=== PATIENT | male | born 1940 | race Caucasian/White ===

== ENCOUNTER 2019-02-13 07:52 | Inpatient (IN) ==
[2019-02-13] MEDS ORDERED: DEXTROSE 50% 25 GM/50 ML VIAL IV PRN (09:15)
[2019-02-13] MEDS ORDERED: GLUCAGON 1 MG VIAL IM PRN (09:15)
[2019-02-13] MEDS ORDERED: oxyCODONE/ACETAMINOPHEN 5-325 MG TABLET PO PRN (09:27)
[2019-02-13] MEDS: SODIUM CHLORIDE 0.9% 1,000 ML IV SCH (16:27)
[2019-02-13] MEDS: PANTOPRAZOLE 40 MG TABLET PO SCH (21:20)
[2019-02-13] MEDS: METOPROLOL TARTRATE 50 MG TABLET PO SCH (21:20)
[2019-02-13] MEDS: CHLORHEXIDINE 0.12% ORAL RINSE 60 ML BOTTLE SWISH/SPIT SCH (21:23)
[2019-02-14 04:11] LABS: ABG Base Excess 1.9 MMOL/L (-2.5-2.5); ABG PH 7.426 (7.35-7.45); ABG PO2 81.4 MM HG (80-95); ABG TCO2 22.6 MMOL/L (23-27); Allen Test Positive; Pt O2 Delivery Device Room Air
[2019-02-14 04:52] LABS: Basophils % 0.2 % (0.0-0.8); Eosinophils # 0.1 10*3/uL (0.0-0.87); Eosinophils % 1.3 % (0.00-10.9); Hematocrit 41.3 VOL% (42.0-52.0); Hemoglobin 13.5 GM/DL (14.0-18.0); Immature Granulocytes % 0.6 %; Immature Granulocytes Absolute 0.05 #; Lymphocytes % 11.8 % (21.2-54.2); Mean Corpuscular HGB Conc 32.7 GM/DL (32-36); Mean Corpuscular Hemoglobin 31 PG (27-34); Mean Corpuscular Volume 95.8 FL (87-102); Mean Platelet Volume 11.8 FL (9.6-12.0); Monocytes % 11.9 % (1.7-12.7); Neutrophils # 6.2 10*3/uL (1.4-7.4); Neutrophils % 74.2 % (38.7-73.9); Platelet Count 187 T/CUMM (130-400); Red Blood Count 4.31 MC/CUMM (3.8-5.5); Red Cell Distribution Width 11.9 % (9.3-17.3); White Blood Count 8.4 T/CUMM (4-12)
[2019-02-14 05:00] LABS: Bilirubin,Total 0.8 MG/DL (0.2-1.0); Calcium 8.4 MG/DL (8.5-10.1); Osmolality,Calculated 280.3 MOS/KG (273-304); Potassium 3.9 MMOL/L (3.5-5.1); Total Protein 6.5 G/DL (6.4-8.3)
[2019-02-14] MEDS: ATORVASTATIN 20 MG TABLET PO SCH (09:43)
[2019-02-14] MEDS: ASPIRIN CHEW 81 MG TABLET PO SCH (09:44)
[2019-02-14] MEDS: PANTOPRAZOLE 40 MG TABLET PO SCH ×2 (09:44→21:32)
[2019-02-14] MEDS: METOPROLOL TARTRATE 50 MG TABLET PO SCH ×2 (09:44→21:32)
[2019-02-14] MEDS: amLODIPine 5 MG TABLET PO SCH (09:44)
[2019-02-14] MEDS: CHLORHEXIDINE 4% SOLN 118 ML BOTTLE TOP SCH ×2 (15:02→21:32)
[2019-02-14] MEDS: CHLORHEXIDINE 0.12% ORAL RINSE 60 ML BOTTLE SWISH/SPIT SCH ×2 (15:02→21:32)
[2019-02-15] MEDS: SODIUM CHLORIDE 0.9% 1,000 ML IV SCH ×2 (01:16→22:47)
[2019-02-15] MEDS ORDERED: PAPAVERINE 60 MG/2 ML VIAL ONE (04:23)
[2019-02-15] MEDS ORDERED: VANCOMYCIN 1,000 MG VIAL ONE (04:23)
[2019-02-15] MEDS: CHLORHEXIDINE 4% SOLN 118 ML BOTTLE TOP SCH ×2 (05:34→12:07)
[2019-02-15] MEDS ORDERED: FAMOTIDINE 20 MG TABLET PO ONE (06:00)
[2019-02-15] MEDS ORDERED: ceFAZolin 1,000 MG in SYRINGE 1 EACH IV ONE (06:00)
[2019-02-15] MEDS ORDERED: DIAZEPAM 5 MG TABLET PO ONE (06:00)
[2019-02-15] MEDS ORDERED: SUFentanil 250 MCG/5 ML AMP ONE (06:11)
[2019-02-15] MEDS ORDERED: CALCIUM CHLORIDE 1,000 MG/10 ML VIAL IV ONE (06:11)
[2019-02-15] MEDS ORDERED: MINERAL OIL/PETROLATUM OPH OINT 3.5 GM TUBE ONE (06:11)
[2019-02-15] MEDS ORDERED: MIDAZOLAM 10 MG/2 ML VIAL ONE (06:11)
[2019-02-15] MEDS ORDERED: VECURONIUM 10 MG VIAL IV ONE (06:12)
[2019-02-15 07:44] LABS: ABG Base Excess 0.3 MMOL/L (-2.5-2.5); ABG HCO3 24.7 MMOL/L (20-26); ABG Oxygen Saturation 99.6 % (95-100); ABG PH 7.362 (7.35-7.45); Glucose Heart Surgery 137 MG/DL (74-106); Hematocrit Heart Surgery 39.8 PERCENT (42-52); Hemoglobin Heart Surgery 12.9 G/DL (14.0-18.0); Ionized Calcium Arterial 1.15 MMOL/L (1.21-1.46); PH Patient Temp Arterial 7.362; Patient Temperature 37 CELCIUS; Potassium Heart/CVR 3.8 MMOL/L (3.5-5.1); Sodium Heart/CVR 137 MMOL/L (135-145)
[2019-02-15 09:16] LABS: Hematocrit Heart Surgery 25.1 PERCENT (42-52); Hemoglobin Heart Surgery 8.1 G/DL (14.0-18.0); PCO2 Patient Temp Venous 36.2 MM HG; PH Patient Temp Venous 7.457; PO2 Patient Temp Venous 38.7 MM HG; Potassium Heart/CVR 4.9 MMOL/L (3.5-5.1); VBG Base Excess 1.9 MEQ/L (0-4); VBG HCO3 25.9 MEQ/L (24-28); VBG Oxygen Saturation 80.2 %; VBG PCO2 39.9 MMHG (41-51); VBG PH 7.427; VBG PO2 44.5 MMHG (17-40)
[2019-02-15 09:51] LABS: Hematocrit Heart Surgery 27.4 PERCENT (42-52); Hemoglobin Heart Surgery 8.8 G/DL (14.0-18.0); PCO2 Patient Temp Venous 30.1 MM HG; PH Patient Temp Venous 7.529; PO2 Patient Temp Venous 39.5 MM HG; Potassium Heart/CVR 4.7 MMOL/L (3.5-5.1); VBG Base Excess 2.7 MEQ/L (0-4); VBG HCO3 26.6 MEQ/L (24-28); VBG Oxygen Saturation 81.8 %; VBG PCO2 31.6 MMHG (41-51); VBG PH 7.514; VBG PO2 42.4 MMHG (17-40)
[2019-02-15 10:34] LABS: ABG Base Excess 1.6 MMOL/L (-2.5-2.5); ABG HCO3 25.8 MMOL/L (20-26); ABG Oxygen Saturation 99.8 % (95-100); ABG PCO2 35.2 MM HG (35-48); ABG PH 7.462 (7.35-7.45); Glucose Heart Surgery 253 MG/DL (74-106); Hematocrit Heart Surgery 28.9 PERCENT (42-52); Hemoglobin Heart Surgery 9.3 G/DL (14.0-18.0); Ionized Calcium Arterial 1.13 MMOL/L (1.21-1.46); PCO2 Patient Temp Arterial 35.2 MMHG; PH Patient Temp Arterial 7.462; Patient Temperature 37 CELCIUS; Potassium Heart/CVR 4.1 MMOL/L (3.5-5.1); Sodium Heart/CVR 132 MMOL/L (135-145)
[2019-02-15] MEDS ORDERED: MANNITOL 100 GM/500 ML BAG IV ONE (10:34)
[2019-02-15] MEDS ORDERED: DEXTROSE 5% KCL 20 MEQ 20 MEQ/1,000 ML BAG IV ONE (10:35)
[2019-02-15] MEDS ORDERED: PROTAMINE SULFATE 250 MG/25 ML VIAL IV ONE (10:35)
[2019-02-15] MEDS ORDERED: SODIUM BICARBONATE 50 MEQ/50 ML VIAL IV ONE (10:35)
[2019-02-15] MEDS ORDERED: PROTAMINE SULFATE 50 MG/5 ML VIAL IV ONE ×2 (10:35→11:27)
[2019-02-15] MEDS ORDERED: ALBUMIN 25% 25 GM/100 ML VIAL IV ONE (10:35)
[2019-02-15] MEDS ORDERED: MAGNESIUM SULFATE 10 GM/20 ML VIAL IV ONE (10:35)
[2019-02-15] MEDS ORDERED: methylPREDNISolone SOD SUC 1,000 MG/8 ML VIAL ONE (10:35)
[2019-02-15] MEDS ORDERED: HEPARIN 10,000 UNIT/10 ML VIAL ONE (10:35)
[2019-02-15] MEDS ORDERED: FUROSEMIDE 20 MG/2 ML VIAL ONE (10:35)
[2019-02-15] MEDS ORDERED: NITROGLYCERIN DRIP 50 MG/250 ML BOTTLE IV ONE ×2 (10:57→11:17)
[2019-02-15] MEDS ORDERED: PHENYLEPHRINE DRIP 40 MG/250 ML PREMIX IV ONE (10:57)
[2019-02-15] MEDS ORDERED: LACTATED RINGERS 1,000 ML IV ONE (11:17)
[2019-02-15] MEDS ORDERED: ETOMIDATE 40 MG/20 ML VIAL IV ONE (11:17)
[2019-02-15] MEDS ORDERED: AMINOCAPROIC ACID 5,000 MG/20 ML VIAL ONE (11:17)
[2019-02-15] MEDS ORDERED: SODIUM CHLORIDE 0.9% 100 ML IV ONE (11:17)
[2019-02-15] MEDS ORDERED: SODIUM CHLORIDE 0.9% 250 ML IV ONE (11:17)
[2019-02-15] MEDS ORDERED: SODIUM CHLORIDE 0.9% 2,000 ML IV ONE (11:17)
[2019-02-15] MEDS ORDERED: SEVOFLURANE 1 UNIT/15 MINUTE INH ONE (11:17)
[2019-02-15] MEDS ORDERED: HEPARIN/NACL 0.9% 2 UNITS/ML 500 ML IV ONE (11:17)
[2019-02-15] MEDS ORDERED: VECURONIUM 10 MG VIAL IV PRN ×2 (11:20)
[2019-02-15] MEDS ORDERED: DEXTROSE 50% 25 GM/50 ML SYRINGE IV PRN ×2 (11:20)
[2019-02-15] MEDS ORDERED: LACTATED RINGERS 250 ML IV PRN (11:20)
[2019-02-15] MEDS ORDERED: NITROPRUSSIDE 100 MG in DEXTROSE 5% 250 ML IV PRN (11:20)
[2019-02-15] MEDS ORDERED: MIDAZOLAM 10 MG/2 ML VIAL IV PRN (11:20)
[2019-02-15] MEDS ORDERED: ACETAMINOPHEN 650 MG SUPP RECTAL PRN (11:20)
[2019-02-15] MEDS ORDERED: MAGNESIUM SULF RIDER 4 GM in PREMIX 1 EACH IV PRN (11:20)
[2019-02-15] MEDS ORDERED: INSULIN REGULAR 100 UNIT/ML IV ONE (11:20)
[2019-02-15] MEDS ORDERED: MORPHINE 4 MG/1 ML VIAL IV PRN (11:20)
[2019-02-15] MEDS ORDERED: INSULIN REGULAR 100 UNIT/ML IV PRN (11:20)
[2019-02-15] MEDS ORDERED: MAGNESIUM SULF RIDER 2 GM in PREMIX 1 EACH IV PRN (11:20)
[2019-02-15] MEDS ORDERED: MORPHINE 10 MG/1 ML VIAL IV PRN (11:20)
[2019-02-15] MEDS ORDERED: PHENYLEPHRINE DRIP 40 MG/250 ML PREMIX IV PRN (11:20)
[2019-02-15] MEDS ORDERED: ONDANSETRON 4 MG/2 ML VIAL IV PRN (11:20)
[2019-02-15] MEDS ORDERED: CALCIUM CHLORIDE 1,000 MG/10 ML SYRINGE IV PRN (11:20)
[2019-02-15] MEDS ORDERED: MIDAZOLAM 2 MG/2 ML VIAL IV PRN (11:20)
[2019-02-15 11:22] LABS: ABG Base Excess 1.1 MMOL/L (-2.5-2.5); ABG HCO3 25.4 MMOL/L (20-26); ABG Oxygen Saturation 98.7 % (95-100); ABG PCO2 36.6 MM HG (35-48); ABG PH 7.443 (7.35-7.45); ABG TCO2 22.8 MMOL/L (23-27); Glucose Heart Surgery 237 MG/DL (74-106); Hematocrit Heart Surgery 29.5 PERCENT (42-52); Hemoglobin Heart Surgery 9.5 G/DL (14.0-18.0); Potassium Heart/CVR 3.9 MMOL/L (3.5-5.1)
[2019-02-15 11:24] LABS: Basophils % 0.1 % (0.0-0.8); Eosinophils # 0.1 10*3/uL (0.0-0.87); Eosinophils % 0.7 % (0.00-10.9); Hematocrit 27.9 VOL% (42.0-52.0); Immature Granulocytes % 1.3 %; Immature Granulocytes Absolute 0.11 #; Lymphocytes # 0.4 10*3/uL (1.4-4.0); Lymphocytes % 4.5 % (21.2-54.2); Mean Corpuscular HGB Conc 32.6 GM/DL (32-36); Mean Corpuscular Hemoglobin 32 PG (27-34); Mean Corpuscular Volume 96.5 FL (87-102); Mean Platelet Volume 10.6 FL (9.6-12.0); Monocytes # 0.4 10*3/uL (0.11-0.8); Neutrophils # 7.6 10*3/uL (1.4-7.4); Neutrophils % 88.4 % (38.7-73.9); Red Cell Distribution Width 11.9 % (9.3-17.3); White Blood Count 8.6 T/CUMM (4-12)
[2019-02-15] MEDS: SODIUM CHLORIDE 0.45% 1,000 ML IV SCH ×2 (11:28)
[2019-02-15 11:29] LABS: Hemoglobin 9.1 GM/DL (14.0-18.0); Platelet Count 182 T/CUMM (130-400); Red Blood Count 2.89 MC/CUMM (3.8-5.5)
[2019-02-15] MEDS ORDERED: NITROGLYCERIN DRIP 50 MG/250 ML BOTTLE IV PRN (11:29)
[2019-02-15] MEDS ORDERED: NITROPRUSSIDE 50 MG/2 ML VIAL ONE (11:31)
[2019-02-15] MEDS ORDERED: POTASSIUM CHLORIDE RIDER 100 ML IV ONE (11:31)
[2019-02-15 11:33] LABS: INR 1.2; PT Patient Result 12.7 SECS; Partial Thromboplastin Time 27.2 SECS (0-40)
[2019-02-15] MEDS: INSULIN REGULAR DRIP 100 ML IV SCH (11:36)
[2019-02-15 11:45] LABS: Hypochromasia 1+; Lymphocytes 6 % (20-55); Platelet Estimate Adequate; Segmented Neutrophils 91 % (50-85); Total Cells Counted 100
[2019-02-15 11:50] LABS: CKMB % 8.8 %
[2019-02-15 11:55] LABS: Albumin 2.9 G/DL (3.4-5.0); Bilirubin,Total 0.8 MG/DL (0.2-1.0); Osmolality,Calculated 285.5 MOS/KG (273-304); Total Protein 5.3 G/DL (6.4-8.3)
[2019-02-15 11:57] LABS: Troponin I 2.42 NG/ML (0.00-0.045)
[2019-02-15] MEDS: POTASSIUM CHLORIDE RIDER 20 MEQ in PREMIX 1 EACH IV PRN ×4 (12:06→18:20)
[2019-02-15] MEDS: METOPROLOL TARTRATE 25 MG TABLET PO SCH ×2 (12:25→21:33)
[2019-02-15] MEDS: KETOROLAC 30 MG/1 ML VIAL IV SCH ×2 (12:25→18:03)
[2019-02-15 12:32] LABS: ABG Base Excess 0.4 MMOL/L (-2.5-2.5); ABG Oxygen Saturation 96.9 % (95-100); ABG PCO2 34.7 MM HG (35-48); ABG PH 7.457 (7.35-7.45); ABG PO2 98.5 MM HG (80-95); Glucose Heart Surgery 189 MG/DL (74-106); Hemoglobin Heart Surgery 10.4 G/DL (14.0-18.0); Potassium Heart/CVR 3.7 MMOL/L (3.5-5.1)
[2019-02-15] MEDS: POTASSIUM CHLORIDE RIDER 10 MEQ in PREMIX 1 EACH IV PRN ×2 (12:32→18:58)
[2019-02-15 13:17] LABS: Apearance,Urine CLEAR (Clear); Bilirubin,Urine Negative (Negative); Blood, Urine Negative (Negative); Glucose,Urine (UA) Negative (Negative); Ketones,Urine 5 mg/dL (Negative); Mucus,Urine Occasional /LPF (Occasional); Nitrite,Urine Negative (Negative); Protein,Urine Negative; Squamous Epithelial Cell,Urine Occasional /HPF (0-10); Urine Color Yellow (Yellow); Urine Specific Gravity 1.019 (1.001-1.035); Urine Urobilinogen < 2.0 EU/DL (0.2-1.0); WBC,Urine 1 /HPF (0-6)
[2019-02-15] MEDS: LACTATED RINGERS 1,000 ML IV PRN ×2 (14:00→17:30)
[2019-02-15 14:08] LABS: ABG HCO3 23.3 MMOL/L (20-26); ABG Oxygen Saturation 97.6 % (95-100); ABG PCO2 33.2 MM HG (35-48); ABG PH 7.465 (7.35-7.45); ABG PO2 117.4 MM HG (80-95); ABG TCO2 24.4 MMOL/L (23-27); Glucose Heart Surgery 146 MG/DL (74-106); Potassium Heart/CVR 3.4 MMOL/L (3.5-5.1)
[2019-02-15 16:22] LABS: ABG Base Excess 0.3 MMOL/L (-2.5-2.5); ABG HCO3 24.7 MMOL/L (20-26); ABG PH 7.404 (7.35-7.45); ABG TCO2 22.6 MMOL/L (23-27); Glucose Heart Surgery 126 MG/DL (74-106); Hematocrit Heart Surgery 32.3 PERCENT (42-52); Hemoglobin Heart Surgery 10.4 G/DL (14.0-18.0); Potassium Heart/CVR 3.9 MMOL/L (3.5-5.1)
[2019-02-15] MEDS: ALBUMIN 5% 12.5 GM in PREMIX 1 EACH IV PRN ×2 (17:30→18:03)
[2019-02-15 20:04] LABS: ABG Base Excess -0.4 MMOL/L (-2.5-2.5); ABG HCO3 24.9 MMOL/L (20-26); ABG Oxygen Saturation 97.6 % (95-100); ABG PCO2 43.3 MM HG (35-48); ABG PH 7.377 (7.35-7.45); ABG PO2 119.2 MM HG (80-95); ABG TCO2 26.2 MMOL/L (23-27); Glucose Heart Surgery 109 MG/DL (74-106); Hemoglobin Heart Surgery 10.6 G/DL (14.0-18.0); Potassium Heart/CVR 4.3 MMOL/L (3.5-5.1)
[2019-02-15 20:26] LABS: Troponin I 3.54 NG/ML (0.00-0.045)
[2019-02-15] MEDS: CHLORHEXIDINE 0.12% ORAL RINSE 60 ML BOTTLE SWISH/SPIT SCH ×2 (21:45→22:46)
[2019-02-15] MEDS: ASPIRIN CHEW 81 MG TABLET PO SCH (22:44)
[2019-02-15] MEDS: ATORVASTATIN 20 MG TABLET PO SCH (22:44)
[2019-02-15] MEDS: METOPROLOL TARTRATE 50 MG TABLET PO SCH (22:45)
[2019-02-15] MEDS: PANTOPRAZOLE 40 MG TABLET PO SCH (22:46)
[2019-02-15] MEDS: amLODIPine 5 MG TABLET PO SCH (22:46)
[2019-02-16] MEDS: KETOROLAC 30 MG/1 ML VIAL IV SCH ×4 (00:03→17:34)
[2019-02-16 00:10] LABS: ABG Base Excess -0.7 MMOL/L (-2.5-2.5); ABG HCO3 23.9 MMOL/L (20-26); ABG Oxygen Saturation 98.4 % (95-100); ABG PH 7.397 (7.35-7.45); ABG TCO2 21.7 MMOL/L (23-27); Glucose Heart Surgery 106 MG/DL (74-106); Hematocrit Heart Surgery 32.6 PERCENT (42-52); Hemoglobin Heart Surgery 10.6 G/DL (14.0-18.0); Potassium Heart/CVR 4.1 MMOL/L (3.5-5.1)
[2019-02-16] MEDS: METOPROLOL TARTRATE 25 MG TABLET PO SCH ×2 (00:12→07:30)
[2019-02-16] MEDS ORDERED: FUROSEMIDE 40 MG/4 ML VIAL IV ONE (00:24)
[2019-02-16 00:49] LABS: ABG Base Excess -1.8 MMOL/L (-2.5-2.5); ABG HCO3 22.9 MMOL/L (20-26); ABG Oxygen Saturation 97.9 % (95-100); ABG PCO2 42.7 MM HG (35-48); ABG PH 7.354 (7.35-7.45); ABG TCO2 21.5 MMOL/L (23-27); Glucose Heart Surgery 120 MG/DL (74-106); Hematocrit Heart Surgery 33.6 PERCENT (42-52); Hemoglobin Heart Surgery 10.9 G/DL (14.0-18.0)
[2019-02-16] MEDS: POTASSIUM CHLORIDE RIDER 20 MEQ in PREMIX 1 EACH IV PRN ×2 (01:19→05:18)
[2019-02-16 04:16] LABS: ABG Base Excess -0.3 MMOL/L (-2.5-2.5); ABG HCO3 24.1 MMOL/L (20-26); ABG Oxygen Saturation 95.7 % (95-100); ABG PH 7.395 (7.35-7.45); ABG PO2 80.8 MM HG (80-95); ABG TCO2 22.1 MMOL/L (23-27); Glucose Heart Surgery 148 MG/DL (74-106); Hematocrit Heart Surgery 32.6 PERCENT (42-52); Hemoglobin Heart Surgery 10.6 G/DL (14.0-18.0); Potassium Heart/CVR 4.1 MMOL/L (3.5-5.1)
[2019-02-16 04:25] LABS: Basophils % 0.2 % (0.0-0.8); Hematocrit 30.6 VOL% (42.0-52.0); Hemoglobin 10.2 GM/DL (14.0-18.0); Immature Granulocytes % 0.8 %; Immature Granulocytes Absolute 0.16 #; Lymphocytes # 0.4 10*3/uL (1.4-4.0); Lymphocytes % 1.9 % (21.2-54.2); Mean Corpuscular HGB Conc 33.3 GM/DL (32-36); Mean Corpuscular Hemoglobin 32 PG (27-34); Mean Corpuscular Volume 96.8 FL (87-102); Mean Platelet Volume 11.3 FL (9.6-12.0); Monocytes # 1.1 10*3/uL (0.11-0.8); Monocytes % 5.6 % (1.7-12.7); Neutrophils # 17.8 10*3/uL (1.4-7.4); Neutrophils % 91.5 % (38.7-73.9); Platelet Count 180 T/CUMM (130-400); Red Blood Count 3.16 MC/CUMM (3.8-5.5); White Blood Count 19.4 T/CUMM (4-12)
[2019-02-16 04:43] LABS: Albumin 3.4 G/DL (3.4-5.0); Bilirubin,Direct 0.2 MG/DL (0.0-0.20); Bilirubin,Total 0.6 MG/DL (0.2-1.0); Calcium 8.1 MG/DL (8.5-10.1); Osmolality,Calculated 282.4 MOS/KG (273-304); Potassium 4.2 MMOL/L (3.5-5.1); Total Protein 6.1 G/DL (6.4-8.3)
[2019-02-16 04:44] LABS: CKMB % 6.4 %
[2019-02-16 04:46] LABS: Troponin I 2.49 NG/ML (0.00-0.045)
[2019-02-16 04:52] LABS: Band Neutrophils 2 % (0-10); Hypochromasia 1+; Lymphocytes 2 % (20-55); Ovalocytes Slight; Platelet Estimate Adequate; Segmented Neutrophils 93 % (50-85); Total Cells Counted 100
[2019-02-16] MEDS ORDERED: DEXTROSE 50% 25 GM/50 ML SYRINGE IV PRN (06:21)
[2019-02-16] MEDS ORDERED: GLUCAGON 1 MG VIAL IM PRN ×3 (06:21→12:43)
[2019-02-16] MEDS: amLODIPine 5 MG TABLET PO SCH (07:30)
[2019-02-16] MEDS: LISINOPRIL 10 MG TABLET PO SCH ×2 (07:30→12:28)
[2019-02-16] MEDS: CHLORHEXIDINE 0.12% ORAL RINSE 60 ML BOTTLE SWISH/SPIT SCH ×2 (08:21→21:47)
[2019-02-16] MEDS ORDERED: DEXTROSE 50% 25 GM/50 ML VIAL IV PRN ×2 (12:43)
[2019-02-16] MEDS ORDERED: oxyCODONE/ACETAMINOPHEN 5-325 MG TABLET PO PRN (12:43)
[2019-02-16] MEDS ORDERED: ACETAMINOPHEN 325 MG TABLET PO PRN (12:43)
[2019-02-16] MEDS ORDERED: ONDANSETRON 4 MG/2 ML VIAL IV PRN (12:43)
[2019-02-16] MEDS ORDERED: KETOROLAC 30 MG/1 ML VIAL IV SCH (12:43)
[2019-02-16] MEDS ORDERED: MAGNESIUM HYDROXIDE SUSP 30 ML UDCUP PO PRN (12:43)
[2019-02-16] MEDS ORDERED: ALUMINUM/MAGNES/SIMETH MAX STR 30 ML UDCUP PO PRN (12:43)
[2019-02-16] MEDS ORDERED: POTASSIUM CHLORIDE 20 MEQ TABLET PO PRN (12:43)
[2019-02-16] MEDS ORDERED: MAGNESIUM SULF RIDER 4 GM in PREMIX 1 EACH IV PRN (12:43)
[2019-02-16] MEDS ORDERED: SODIUM CHLOR 0.45% KCL 20 MEQ 20 MEQ/1,000 ML BAG IV SCH (12:43)
[2019-02-16] MEDS ORDERED: MAGNESIUM SULF RIDER 2 GM in PREMIX 1 EACH IV PRN (12:43)
[2019-02-16] MEDS: INSULIN REGULAR DRIP 100 ML IV SCH (13:10)
[2019-02-16] MEDS: SODIUM CHLORIDE 0.45% 1,000 ML IV SCH ×2 (13:11)
[2019-02-16] MEDS ORDERED: PANTOPRAZOLE 40 MG TABLET PO SCH (21:00)
[2019-02-16] MEDS: METOPROLOL TARTRATE 50 MG TABLET PO SCH (21:46)
[2019-02-16] MEDS: ATORVASTATIN 20 MG TABLET PO SCH (21:46)
[2019-02-16] MEDS: INSULIN LISPRO 100 UNIT/ML SUBCUT SCH (21:50)
[2019-02-17] MEDS: KETOROLAC 30 MG/1 ML VIAL IV SCH ×5 (01:05→23:34)
[2019-02-17] MEDS: ZALEPLON 5 MG CAPSULE PO PRN ×2 (01:05→22:23)
[2019-02-17] MEDS: INSULIN LISPRO 100 UNIT/ML SUBCUT SCH ×5 (02:01→22:28)
[2019-02-17 04:26] LABS: Hemoglobin 10.9 GM/DL (14.0-18.0); Immature Granulocytes % 1.1 %; Immature Granulocytes Absolute 0.24 #; Lymphocytes # 0.6 10*3/uL (1.4-4.0); Lymphocytes % 2.7 % (21.2-54.2); Mean Corpuscular Hemoglobin 32 PG (27-34); Mean Corpuscular Volume 97.3 FL (87-102); Mean Platelet Volume 11.8 FL (9.6-12.0); Monocytes # 2.1 10*3/uL (0.11-0.8); Monocytes % 9.2 % (1.7-12.7); Neutrophils # 19.9 10*3/uL (1.4-7.4); Platelet Count 198 T/CUMM (130-400); Red Blood Count 3.39 MC/CUMM (3.8-5.5); Red Cell Distribution Width 12.3 % (9.3-17.3); White Blood Count 22.8 T/CUMM (4-12)
[2019-02-17 04:47] LABS: Albumin 3.1 G/DL (3.4-5.0); Bilirubin,Direct 0.15 MG/DL (0.0-0.20); Bilirubin,Indirect 0.3 MG/DL (0.0-1.0); Bilirubin,Total 0.4 MG/DL (0.2-1.0); CKMB % 1.6 %; Calcium 8.1 MG/DL (8.5-10.1); Osmolality,Calculated 280.7 MOS/KG (273-304); Potassium 4.5 MMOL/L (3.5-5.1); Total Protein 6.3 G/DL (6.4-8.3)
[2019-02-17 04:48] LABS: Band Neutrophils 1 % (0-10); Hypochromasia 1+; Lymphocytes 2 % (20-55); Ovalocytes Slight; Platelet Estimate Adequate; Segmented Neutrophils 92 % (50-85); Total Cells Counted 100
[2019-02-17 05:02] LABS: Troponin I 1.44 NG/ML (0.00-0.045)
[2019-02-17] MEDS ORDERED: FUROSEMIDE 40 MG/4 ML VIAL IV ONE (06:00)
[2019-02-17] MEDS ORDERED: ASPIRIN CHEW 81 MG TABLET PO SCH (09:00)
[2019-02-17] MEDS ORDERED: amLODIPine 5 MG TABLET PO SCH (09:00)
[2019-02-17] MEDS: ASPIRIN EC 325 MG TABLET PO SCH (09:38)
[2019-02-17] MEDS: PANTOPRAZOLE 40 MG TABLET PO SCH (09:38)
[2019-02-17] MEDS: LISINOPRIL 20 MG TABLET PO SCH (09:38)
[2019-02-17] MEDS: sitaGLIPtin 100 MG TABLET PO SCH (09:38)
[2019-02-17] MEDS: amLODIPine 5 MG TABLET PO SCH (09:38)
[2019-02-17] MEDS: FERROUS SULFATE 325 MG TABLET PO SCH (09:38)
[2019-02-17] MEDS: DOCUSATE SODIUM 100 MG CAPSULE PO SCH (09:38)
[2019-02-17] MEDS: CHLORHEXIDINE 0.12% ORAL RINSE 60 ML BOTTLE SWISH/SPIT SCH ×2 (09:39→22:28)
[2019-02-17] MEDS: METOPROLOL TARTRATE 50 MG TABLET PO SCH ×2 (09:39→22:23)
[2019-02-17] MEDS: ATORVASTATIN 20 MG TABLET PO SCH (22:23)
[2019-02-18] MEDS: INSULIN LISPRO 100 UNIT/ML SUBCUT SCH ×3 (00:40→10:20)
[2019-02-18 05:20] LABS: Basophils # 0.1 10*3/uL (0.0-0.2); Basophils % 0.4 % (0.0-0.8); Eosinophils % 0.3 % (0.00-10.9); Hematocrit 35.6 VOL% (42.0-52.0); Hemoglobin 11.6 GM/DL (14.0-18.0); Immature Granulocytes % 1.6 %; Immature Granulocytes Absolute 0.25 #; Lymphocytes # 1.3 10*3/uL (1.4-4.0); Lymphocytes % 8.1 % (21.2-54.2); Mean Corpuscular HGB Conc 32.6 GM/DL (32-36); Mean Corpuscular Hemoglobin 32 PG (27-34); Mean Corpuscular Volume 98.1 FL (87-102); Mean Platelet Volume 11.6 FL (9.6-12.0); Monocytes # 2.2 10*3/uL (0.11-0.8); Monocytes % 13.9 % (1.7-12.7); Neutrophils # 11.8 10*3/uL (1.4-7.4); Neutrophils % 75.7 % (38.7-73.9); Platelet Count 198 T/CUMM (130-400); Red Blood Count 3.63 MC/CUMM (3.8-5.5); Red Cell Distribution Width 12.2 % (9.3-17.3); White Blood Count 15.6 T/CUMM (4-12)
[2019-02-18 05:34] LABS: Alanine Aminotransferase 25 U/L (16-61); Alkaline Phosphatase 75 U/L (45-117); Aspartate Amino Transferase 16 U/L (0-37); Bilirubin,Indirect 0.5 MG/DL (0.0-1.0); Blood Urea Nitrogen 26 MG/DL (7-18); Calcium 8.2 MG/DL (8.5-10.1); Glucose 103 MG/DL (74-106); Osmolality,Calculated 283.4 MOS/KG (273-304); Potassium 3.7 MMOL/L (3.5-5.1); Sodium 140 MMOL/L (136-145); Total Protein 6.1 G/DL (6.4-8.3)
[2019-02-18 05:35] LABS: Troponin I 0.751 NG/ML (0.00-0.045)
[2019-02-18] MEDS: KETOROLAC 30 MG/1 ML VIAL IV SCH ×2 (06:06→09:08)
[2019-02-18 08:12] VITALS: BP 146/84
[2019-02-18] MEDS: DOCUSATE SODIUM 100 MG CAPSULE PO SCH (09:04)
[2019-02-18] MEDS: LISINOPRIL 20 MG TABLET PO SCH (09:04)
[2019-02-18] MEDS: ASPIRIN EC 325 MG TABLET PO SCH (09:05)
[2019-02-18] MEDS: FERROUS SULFATE 325 MG TABLET PO SCH (09:05)
[2019-02-18] MEDS: sitaGLIPtin 100 MG TABLET PO SCH (09:05)
[2019-02-18] MEDS: amLODIPine 5 MG TABLET PO SCH (09:05)
[2019-02-18] MEDS: PANTOPRAZOLE 40 MG TABLET PO SCH (09:06)
[2019-02-18] MEDS: METOPROLOL TARTRATE 50 MG TABLET PO SCH (09:06)
[2019-02-18] MEDS: CHLORHEXIDINE 0.12% ORAL RINSE 60 ML BOTTLE SWISH/SPIT SCH (09:12)
== END 2019-02-18 11:47 | disposition home health service (06) | DRG 236 ==
LOC: N.4E 11:13 → SUPCPDRO 11:13 → N.CVR 02-15 07:46 → N.TELES 02-16 12:59

== ENCOUNTER 2019-06-06 05:23 | Observation (INO) ==
[2019-06-06 05:55] LABS: Basophils % 0.2 % (0.0-0.8); Eosinophils # 0.1 10*3/uL (0.0-0.87); Eosinophils % 1.4 % (0.00-10.9); Hematocrit 41.6 VOL% (42.0-52.0); Hemoglobin 13.5 GM/DL (14.0-18.0); Immature Granulocytes % 0.5 %; Immature Granulocytes Absolute 0.04 #; Lymphocytes # 0.9 10*3/uL (1.4-4.0); Mean Corpuscular HGB Conc 32.5 GM/DL (32-36); Mean Corpuscular Volume 93.5 FL (87-102); Mean Platelet Volume 11.5 FL (9.6-12.0); Monocytes % 10.1 % (1.7-12.7); Neutrophils % 76.8 % (38.7-73.9); Platelet Count 158 T/CUMM (130-400); Red Blood Count 4.45 MC/CUMM (3.8-5.5); White Blood Count 8.1 T/CUMM (4-12)
[2019-06-06] MEDS ORDERED: ASPIRIN 325 MG TABLET PO STA (06:40)
[2019-06-06] MEDS ORDERED: FAMOTIDINE 20 MG/2 ML VIAL IV STA (06:42)
[2019-06-06 06:48] LABS: Alanine Aminotransferase 39 U/L (16-61); Albumin 3.3 G/DL (3.4-5.0); Alkaline Phosphatase 130 U/L (45-117); Aspartate Amino Transferase 36 U/L (0-37); Bilirubin,Total < 0.39 MG/DL (0.2-1.0); Blood Urea Nitrogen 8 MG/DL (7-18); Calcium 8.4 MG/DL (8.5-10.1); Glucose 185 MG/DL (74-106); Osmolality,Calculated 281.4 MOS/KG (273-304); Total Protein 6.5 G/DL (6.4-8.3)
[2019-06-06] MEDS ORDERED: hydrALAZINE 20 MG/1 ML VIAL IV STA (07:37)
[2019-06-06] MEDS ORDERED: ACETAMINOPHEN 325 MG TABLET PO PRN (07:39)
[2019-06-06] MEDS ORDERED: ONDANSETRON 4 MG/2 ML VIAL IV PRN (07:39)
[2019-06-06] MEDS ORDERED: ZALEPLON 5 MG CAPSULE PO PRN (08:09)
[2019-06-06] MEDS ORDERED: diphenhydrAMINE CAP 25 MG CAPSULE PO PRN (08:09)
[2019-06-06] MEDS ORDERED: BISACODYL 5 MG TABLET PO PRN (08:09)
[2019-06-06] MEDS ORDERED: MAGNESIUM SULF RIDER 4 GM in PREMIX 1 EACH IV PRN (08:09)
[2019-06-06] MEDS ORDERED: MAGNESIUM SULF RIDER 2 GM in PREMIX 1 EACH IV PRN (08:09)
[2019-06-06] MEDS ORDERED: NITROGLYCERIN SL 0.4 MG TABLET SL PRN (08:17)
[2019-06-06 09:34] LABS: Troponin I 0.642 NG/ML (0.00-0.045)
[2019-06-06] MEDS: METOPROLOL TARTRATE 50 MG TABLET PO SCH ×2 (09:44→22:31)
[2019-06-06] MEDS: ASPIRIN CHEW 81 MG TABLET PO SCH (09:44)
[2019-06-06] MEDS: PANTOPRAZOLE 40 MG TABLET PO SCH (09:44)
[2019-06-06] MEDS: ENOXAPARIN 40 MG/0.4 ML SYRINGE SUBCUT SCH (09:44)
[2019-06-06] MEDS: LOSARTAN 50 MG TABLET PO SCH (09:44)
[2019-06-06] MEDS: sitaGLIPtin 100 MG TABLET PO SCH (09:44)
[2019-06-06] MEDS: INSULIN REGULAR 100 UNIT/ML SUBCUT SCH ×3 (11:48→22:38)
[2019-06-06 11:49] LABS: CKMB % 7.3 %
[2019-06-06 11:51] LABS: Troponin I 1.09 NG/ML (0.00-0.045)
[2019-06-06] MEDS ORDERED: ENOXAPARIN 40 MG/0.4 ML SYRINGE SUBCUT ONE (11:55)
[2019-06-06] MEDS: KETOROLAC 10 MG TABLET PO SCH ×2 (12:18→17:52)
[2019-06-06 15:11] LABS: Troponin I 1.97 NG/ML (0.00-0.045)
[2019-06-07] MEDS: KETOROLAC 10 MG TABLET PO SCH ×3 (03:18→11:37)
[2019-06-07 03:53] LABS: Basophils % 0.3 % (0.0-0.8); Eosinophils # 0.1 10*3/uL (0.0-0.87); Eosinophils % 1.4 % (0.00-10.9); Hematocrit 40.2 VOL% (42.0-52.0); Hemoglobin 12.9 GM/DL (14.0-18.0); Immature Granulocytes % 0.4 %; Immature Granulocytes Absolute 0.03 #; Lymphocytes % 13.5 % (21.2-54.2); Mean Corpuscular HGB Conc 32.1 GM/DL (32-36); Mean Corpuscular Volume 93.7 FL (87-102); Mean Platelet Volume 12.1 FL (9.6-12.0); Monocytes % 13.4 % (1.7-12.7); Platelet Count 157 T/CUMM (130-400); Red Blood Count 4.29 MC/CUMM (3.8-5.5); Red Cell Distribution Width 13.2 % (9.3-17.3); White Blood Count 7.3 T/CUMM (4-12)
[2019-06-07 04:18] LABS: Calcium 8.4 MG/DL (8.5-10.1); Risk Ratio 2.11; VLDL CHOLESTEROL 10.6 MG/DL
[2019-06-07 08:20] VITALS: BP 148/79
[2019-06-07] MEDS: ASPIRIN CHEW 81 MG TABLET PO SCH (09:11)
[2019-06-07] MEDS: sitaGLIPtin 100 MG TABLET PO SCH (09:11)
[2019-06-07] MEDS: PANTOPRAZOLE 40 MG TABLET PO SCH (09:11)
[2019-06-07] MEDS: METOPROLOL TARTRATE 50 MG TABLET PO SCH (09:11)
[2019-06-07] MEDS: INSULIN REGULAR 100 UNIT/ML SUBCUT SCH (09:12)
[2019-06-07] MEDS: LOSARTAN 50 MG TABLET PO SCH (09:23)
[2019-06-07] MEDS: ENOXAPARIN 40 MG/0.4 ML SYRINGE SUBCUT SCH (09:27)
[2019-06-07] MEDS ORDERED: ISOSORBIDE MONONITRATE 30 MG TABLET PO SCH (10:00)
[2019-06-07] MEDS ORDERED: ATORVASTATIN 40 MG TABLET PO SCH (21:00)
== END 2019-06-07 11:58 | disposition home or self-care (01) ==
LOC: N.ED 05:23 → N.EDINP 05:23 → N.TELES 08:29
PROVIDERS: ADMIT Internal Medicine Cardiovascular Disease; ATTEND Internal Medicine Cardiovascular Disease